=== PATIENT | female | born 1975 | race Caucasian/White ===

== ENCOUNTER 2021-11-09 10:36 | Inpatient (IN) | payer OTHER, SELFPAY ==
[2021-11-09 11:25] LABS: #Monocytes 0.4 10x3/uL (0.0-1.1); #Neutrophils 12.7 10x3/uL (1.5-8.4); %Basophils 0.1 % (0.0-2.0); %Lymphocytes 7.1 % (18.0-47.0); %Neutrophils 89.5 % (40.0-75.0); Hemoglobin 14.7 g/dL (12.0-15.5); Mean Corpuscular HGB CONC 34.9 g/dL (32.0-36.0); Mean Corpuscular Hemoglobin 31.4 pg (27.0-33.0); Mean Platelet Volume 10.2 fl (7.4-10.4); Platelet Count 205 10x3/uL (150-450); RBC Distribution Width 12.4 % (11.5-14.5); Red Blood Cell (RBC) Count 4.68 10x6/uL (3.90-5.03); White Blood Cell (WBC) Count 14.2 10x3/uL (3.5-10.5)
[2021-11-09 11:40] LABS: ALT (SGPT) 17 U/L (8-55); AST (SGOT) 28 U/L (5-34); Albumin 4.5 g/dL (3.5-5.0); Alkaline Phosphatase 62 U/L (40-110); Anion Gap 13 mmol/L (10-20); BUN (Urea Nitrogen) 15 mg/dL (7.0-18.7); Bilirubin, Total 1.1 mg/dL (0.2-1.2); Calc. Creatinine Clearance 0 mL/min (70-130); Calcium 9.1 mg/dL (7.8-10.44); Carbon Dioxide 24 mmol/L (22-29); Chloride 104 mmol/L (98-107); Estimated GFR 74; Globulin 2.6 g/dL (2.4-3.5); Glucose 100 mg/dL (70-105); Potassium 4.2 mmol/L (3.5-5.1); Protein, Total 7.1 g/dL (6.0-8.3); Sodium 137 mmol/L (136-145)
[2021-11-09 11:53] LABS: Lipase Less than 4 U/L (8-78)
[2021-11-09 11:54] LABS: Bilirubin Neg (Negative); Blood, Urine 150 (Negative); Clarity Clear (Clear); Glucose, Urine (Dipstick) Normal (Negative); Ketone, Urine 150 mg/dL (Negative); Leukocyte Negative (Negative); Nitrite Negative (Negative); Protein, Urine (Dipstick) 15 mg/dl (Neg-Trace)
[2021-11-09 12:06] LABS: Bacteria/HPF 1+ HPF (None Seen); Squamous Epithelial 0-3 HPF (0-3); WBC/HPF 0-3 HPF (0-3)
[2021-11-09] MEDS ORDERED: Ketorolac Tromethamine 30 MG/ML VIAL ONE (12:25)
[2021-11-09] MEDS ORDERED: Iopamidol 300 61% 100 ML VIAL FS ONE (13:25)
[2021-11-09] MEDS ORDERED: Piperacillin/Tazobactam 4.5 GM VIAL ONE (16:16)
[2021-11-09 16:32] LABS: SARS-CoV-2 NAA Rapid Test Not Detected (NotDetected)
[2021-11-09] MEDS ORDERED: Promethazine HCl 25 MG/ML VIAL IM PRN (17:01)
[2021-11-09] MEDS ORDERED: Dextrose 50% Abboject 50 ML SYRINGE SLOW IVP PRN (17:01)
[2021-11-09] MEDS ORDERED: Dextrose 5% in Water 1,000 ML IV PRN (17:01)
[2021-11-09] MEDS ORDERED: Ondansetron PF 4 MG/2 ML Vial IVP PRN (17:01)
[2021-11-09] MEDS ORDERED: HYDROcodone/Acetaminophen 10/325 mg Tablet PO PRN (17:01)
[2021-11-09] MEDS ORDERED: hydrALAZINE 20 MG/ML VIAL SLOW IVP PRN (17:01)
[2021-11-09] MEDS ORDERED: Morphine 2 MG/ML VIAL SLOW IVP PRN (17:01)
[2021-11-09] MEDS ORDERED: Piperacillin/Tazobactam 3.375 GM in Sodium Chloride 0.9% 100 ML IVPB SCH (17:15)
[2021-11-09 17:20] LABS: Troponin I 0.459 ng/mL (< 0.028)
[2021-11-09 19:34] LABS: Troponin I 0.475 ng/mL (< 0.028)
[2021-11-09] MEDS ORDERED: Lactated Ringer's 1,000 ML IV SCH ×2 (20:30)
[2021-11-09] MEDS ORDERED: Aspirin 81 mg Enteric Coated Tablet PO SCH (20:30)
[2021-11-09 21:16] LABS: CKMB 7.6 ng/mL (0-6.6)
[2021-11-09] MEDS: Famotidine/PF 20 mg/2ml Vial SLOW IVP SCH (21:45)
[2021-11-09] MEDS: Ketorolac Tromethamine 30 MG/ML VIAL IVP SCH (22:08)
[2021-11-09] MEDS: Metoprolol Tartrate 25 MG TAB PO SCH (22:28)
[2021-11-09 22:49] LABS: Troponin I 0.476 ng/mL (< 0.028)
[2021-11-10] MEDS: Ketorolac Tromethamine 30 MG/ML VIAL IVP SCH ×5 (00:08→23:12)
[2021-11-10] MEDS ORDERED: FLU VACC QS2022-23(6MOS UP)/PF 60 MCG/0.5 ML SYRINGE IM ONE (09:00)
[2021-11-10] MEDS ORDERED: Aspirin 81 mg Enteric Coated Tablet PO SCH (09:00)
[2021-11-10] MEDS: Metoprolol Tartrate 25 MG TAB PO SCH ×2 (09:17→20:06)
[2021-11-10] MEDS: Famotidine/PF 20 mg/2ml Vial SLOW IVP SCH ×2 (09:17→20:05)
[2021-11-10] MEDS ORDERED: Bupivacaine 0.25% HCL 30 ML VIAL ONE (14:43)
[2021-11-10] MEDS ORDERED: EPINEPHrine 1 MG/ML AMP ONE (14:43)
[2021-11-10] MEDS ORDERED: Rocuronium Bromide 10 MG/ML (10ML VIAL) ONE (16:52)
[2021-11-10] MEDS ORDERED: Fentanyl 100 MCG/2 ML VIAL ONE (16:52)
[2021-11-10] MEDS ORDERED: Ondansetron PF 4 MG/2 ML Vial ONE (16:52)
[2021-11-10] MEDS ORDERED: PROPOFOL 20 ML ONE (16:52)
[2021-11-10] MEDS ORDERED: Lidocaine 1% PF 5 ML VIAL ONE (16:52)
[2021-11-10] MEDS ORDERED: Succinylcholine 200 MG/10 ml SYRINGE FS ONE (16:52)
[2021-11-10] MEDS ORDERED: Piperacillin/Tazobactam 3.375 GM VIAL ONE (16:59)
[2021-11-10] MEDS ORDERED: Dexamethasone 20 MG/5 ML VIAL ONE (17:20)
[2021-11-10] MEDS ORDERED: Glycopyrrolate 0.2 MG/ML 5 ML SYRINGE ONE (17:33)
[2021-11-10] MEDS ORDERED: Ketorolac Tromethamine 30 MG/ML VIAL ONE (18:09)
[2021-11-11 05:38] VITALS: BP 113/68; TEMP 97.1
[2021-11-11] MEDS: Ketorolac Tromethamine 30 MG/ML VIAL IVP SCH (06:53)
== END 2021-11-11 06:48 | disposition home or self-care (01) | DRG 342 ==
LOC: CSHERS 10:36 → CSHTELE 21:27
PROVIDERS: ADMIT Surgery; ATTEND Surgery
PROC: 0DTJ4ZZ Resection of Appendix, Percutaneous Endoscopic Approach (ICD-10-PCS; principal; 2021-11-10)
DX: K35.80 Unspecified acute appendicitis (principal); M62.82 Rhabdomyolysis; Z20.822 Contact with and (suspected) exposure to COVID-19; I10 Essential (primary) hypertension; K37 Unspecified appendicitis; Z98.51 Tubal ligation status
CPT/HCPCS: 36415; 74177; 80053; 81003; 81015; 82550; 82553; 83690; 83880; 84484; 85025; 85379; 88304; 93005; 93010; 93306; 94760; 96365; 96375; A4649; J0171; J1100; J1885; J2405; J2543; J2704; J3010; J7120; Q9967; S0020; S0028; U0002